=== PATIENT | male | born 1940 | race Asian ===

== ENCOUNTER → 2018-04-24 | Outpatient (CLI) | payer MEDICARE | END | disposition home or self-care (01) | LOC: CFH 09:35 | PROVIDERS: ATTEND Family Medicine | DX: M51.37 Other intervertebral disc degeneration, lumbosacral region (principal); M12.88 Other specific arthropathies, not elsewhere classified, other specified site | CPT/HCPCS: 72110 ==

== ENCOUNTER → 2019-10-26 | Outpatient (CLI) | payer MEDICARE | END | disposition home or self-care (01) | LOC: CFH 09:59 | PROVIDERS: ATTEND Family Medicine | DX: M19.042 Primary osteoarthritis, left hand (principal); M19.041 Primary osteoarthritis, right hand; M79.89 Other specified soft tissue disorders; M47.812 Spondylosis without myelopathy or radiculopathy, cervical region; M48.02 Spinal stenosis, cervical region; M85.88 Other specified disorders of bone density and structure, other site | CPT/HCPCS: 72050; 77077 ==

== ENCOUNTER 2019-11-21 10:27 | Emergency (ER) | payer MEDICARE ==
[~2019-11-21] VITALS: Ht 154.9 cm; Wt 51.6 kg
--- NOTE | 2019-11-21 11:08 | NUR ---
THIS IS A 79 YO M W/ C/O DIZZINESS THAT STARTED TODAY. DENIES CP/SOB/ABD PAIN/N/V/D. RESP EVEN AND UNLABORED. HYPERTENSIVE 170/93. PT IS RESTING ON GURNEY W/ CALL LIGHT IN REACH. AWAITING ED EVAL. AMBUALTED TO THE BR W/ A STEADY GAIT. URINE COLLECTED AND SENT TO LAB. DENIES FURTHER NEEDS AT THIS TIME.
[2019-11-21 11:25] LABS: MICROSCOPIC NOT IND
[2019-11-21 11:31] LABS: CULTURE INDICATED? NO
[2019-11-21 11:42] LABS: BASOPHILS # (AUTO) 0.01 x10^3/uL (0-0.1); BASOPHILS % (AUTO) 0 % (0-1); EOSINOPHILS # (AUTO) 0.12 x10^3/uL (0-0.4); EOSINOPHILS % (AUTO) 2 % (1-7); LYMPHOCYTES # (AUTO) 1.12 x10^3/uL (1-3.4); LYMPHOCYTES % (AUTO) 21 % (22-44); MD NO; MEAN CORPUSCULAR HEMOGLOBIN 30.9 pg (27.5-34.5); MEAN CORPUSCULAR HGB CONC 34.2 g/dL (33.2-36.2); MEAN CORPUSCULAR VOLUME 90.6 fL (81-97); MONOCYTES # (AUTO) 0.37 x10^3/uL (0.2-0.8); MONOCYTES % (AUTO) 7 % (2-9); NEUTROPHILS # (AUTO) 3.83 x10^3/uL (1.8-6.8); NEUTROPHILS % (AUTO) 70 % (42-75); PLATELET COUNT 258 x10^3/uL (130-400); RED BLOOD COUNT 5.06 x10^6/uL (4.38-5.82); RED CELL DISTRIBUTION WIDTH 13.8 % (9.4-14.8)
[2019-11-21 11:55] LABS: ALBUMIN 3.7 g/dL (3.4-5.0); ANION GAP 5 mmol/L (5-15); CALCIUM 8.8 mg/dL (8.5-10.1); CHLORIDE 104 mmol/L (98-107)
[2019-11-21 11:58] LABS: ALANINE AMINOTRANSFERASE 25 U/L (12-78); ALKALINE PHOSPHATASE 71 U/L (45-117); BILIRUBIN,TOTAL 0.6 mg/dL (0.2-1.0); CREATININE 0.93 mg/dL (0.7-1.3); TOTAL PROTEIN 7.8 g/dL (6.4-8.2)
[2019-11-21 12:12] VITALS: BP 153/92
--- NOTE | 2019-11-21 12:22 | NUR ---
Patient given discharge instructions and they have confirmed that they understand the instructions. Patient ambulatory with steady gait.
== END 2019-11-21 12:24 | disposition home or self-care (01) ==
LOC: ED 11:46
DX: R42 Dizziness and giddiness (principal); H93.19 Tinnitus, unspecified ear; I51.7 Cardiomegaly
CPT/HCPCS: 36415; 80053; 81003; 85025; 93005; 99284